=== PATIENT | female | born 1970 ===

== ENCOUNTER 2019-11-01 07:32 | Outpatient (CLI) | payer OTHER ==
[~2019-11-01 07:32] MED LIST: ATORVASTATIN CA10 MG; COZAAR100 MG PO; CYMBALTA20 MG PO
== END 2019-11-01 08:00 | disposition home or self-care (01) ==
LOC: NUCLEAR 07:32
DX: M16.4 Bilateral post-traumatic osteoarthritis of hip (principal); M81.0 Age-related osteoporosis without current pathological fracture
CPT/HCPCS: 77080; 78315; A9503

== ENCOUNTER → 2020-09-28 | Outpatient (CLI) | payer OTHER | END | disposition home or self-care (01) | LOC: NUCLEAR 10-26 08:30 → RAD 09:50 | DX: K44.9 Diaphragmatic hernia without obstruction or gangrene (principal); R13.19 Other dysphagia ==